=== PATIENT | female | born 1940 | race Caucasian/White ===

== ENCOUNTER 2019-12-15 16:58 | Inpatient (IN) ==
[2019-12-15] MEDS ORDERED: Aspirin 81 MG TAB.CHEW PO ONE (17:15)
[2019-12-15 17:39] LABS: Basophils % 0.7 %; Eosinophils # 0.1 K/mcL (0.0-0.6); Eosinophils % 2.2 %; Hematocrit 42.2 % (35.3-44.9); Hemoglobin 13.9 g/dL (11.5-15.4); Immature Granulocytes % 0.3 % (0-4); Lymphocytes # 1.6 K/mcL (0.6-4.6); Lymphocytes % 27.9 %; Mean Corpuscular HGB Conc 32.9 g/dL (31.6-35.5); Mean Corpuscular Hemoglobin 30.3 pg (28.0-33.3); Mean Corpuscular Volume 92.1 fL (83.0-100.0); Mean Platelet Volume 10.8 fL (9.4-12.4); Monocytes # 0.3 K/mcL (0.0-1.3); Monocytes % 5.9 %; Neutrophils # 3.7 K/mcL (1.6-8.9); Platelet Count 251 K/mcL (140-400); Red Blood Count 4.58 M/mcL (3.82-4.97); Red Cell Distribution Width 13.8 % (11.5-14.5); White Blood Count 5.8 K/mcL (4.3-11.1)
[2019-12-15 17:41] LABS: INR 1.1; Prothrombin Time 12.2 Seconds (9.4-12.1)
[2019-12-15 17:44] LABS: Activated Partial Thrombo Time 34.4 Seconds (26.0-36.0)
[2019-12-15 17:57] LABS: BUN/Creatinine Ratio 23 (6-26); Blood Urea Nitrogen 19 mg/dL (8-23); Calcium 10.5 mg/dL (8.6-10.3); Carbon Dioxide 25 mEq/L (23-29); Chloride 99 mEq/L (98-107); Glucose 379 mg/dL (70-105); Osmolality,Calculated 292 (280-300); Potassium 4.4 mEq/L (3.5-5.1); Sodium 132 mEq/L (136-145); eGFR For African Americans > 60 (> 60); eGFR For Non-African Americans > 60 (> 60)
[2019-12-15 17:59] LABS: Troponin I 0.03 ng/mL (< 0.04)
[2019-12-15] MEDS ORDERED: Naloxone 0.4 MG/ML INJ IVP PRN (20:02)
[2019-12-15] MEDS ORDERED: Dextrose Gel 15 GM/37.5 ML TUBE PO PRN ×2 (20:12)
[2019-12-15] MEDS ORDERED: D5% in Water 1,000 ML IVC PRN (20:12)
[2019-12-15] MEDS ORDERED: *HR* Dextrose 50 % in Water (Syg) 50 ML SYRINGE IVP PRN (20:12)
[2019-12-15] MEDS ORDERED: Furosemide 20 MG/2 ML VIAL IVP ONE (21:59)
[2019-12-15] MEDS ORDERED: tiZANidine 4 MG TABLET PO PRN (22:15)
[2019-12-15] MEDS ORDERED: Nitroglycerin Spray 4.9 GM BOTTLE TL PRN (22:15)
[2019-12-15] MEDS: Insulin LISPRO 300 UNITS/3 ML VIAL SQ SCH (22:49)
[2019-12-15] MEDS ORDERED: Acetaminophen 325 MG TABLET PO PRN (22:54)
[2019-12-15] MEDS ORDERED: *HR* Promethazine 25 MG/ML VIAL IVP PRN (22:54)
[2019-12-16] MEDS ORDERED: Nitroglycerin 0.4 MG TAB.SUBL SL PRN (00:32)
[2019-12-16 01:05] LABS: Basophils % 0.5 %; Eosinophils # 0.1 K/mcL (0.0-0.6); Hematocrit 44.4 % (35.3-44.9); Hemoglobin 14.2 g/dL (11.5-15.4); Immature Granulocytes % 0.3 % (0-4); Lymphocytes # 1.4 K/mcL (0.6-4.6); Lymphocytes % 23.5 %; Mean Corpuscular Volume 93.9 fL (83.0-100.0); Mean Platelet Volume 11.3 fL (9.4-12.4); Monocytes # 0.3 K/mcL (0.0-1.3); Monocytes % 5.6 %; Platelet Count 256 K/mcL (140-400); Red Blood Count 4.73 M/mcL (3.82-4.97); Red Cell Distribution Width 13.9 % (11.5-14.5); Segmented Neutrophils % 68.1 %; White Blood Count 5.9 K/mcL (4.3-11.1)
[2019-12-16 01:08] LABS: INR 1.1; Prothrombin Time 12.3 Seconds (9.4-12.1)
[2019-12-16 01:23] LABS: Chol/HDL Ratio 4.3 (0-4.9)
[2019-12-16 01:24] LABS: BUN/Creatinine Ratio 22 (6-26); Blood Urea Nitrogen 19 mg/dL (8-23); Calcium 10.7 mg/dL (8.6-10.3); Carbon Dioxide 23 mEq/L (23-29); Chloride 99 mEq/L (98-107); Glucose 318 mg/dL (70-105); Osmolality,Calculated 292 (280-300); Sodium 134 mEq/L (136-145); eGFR For African Americans > 60 (> 60); eGFR For Non-African Americans > 60 (> 60)
[2019-12-16 01:38] LABS: Triiodothyronine (T3) Free 3.02 pg/mL (2.50-3.90)
[2019-12-16] MEDS ORDERED: amLODIPine 5 MG TABLET PO ONE (04:25)
[2019-12-16 07:38] LABS: Estimated Average Glucose 260 mg/dl
[2019-12-16] MEDS: Insulin LISPRO 300 UNITS/3 ML VIAL SQ SCH ×4 (08:27→21:44)
[2019-12-16] MEDS: Apixaban 5 MG TABLET PO SCH ×2 (08:28→21:43)
[2019-12-16] MEDS: Gabapentin 300 MG CAPSULE PO SCH ×3 (08:28→21:43)
[2019-12-16] MEDS: Insulin DETEMIR 100 UNIT/ML X5UNITS SQ SCH ×2 (08:28→21:44)
[2019-12-16] MEDS ORDERED: Isosorbide MONOnitrate (24 HR) 60 MG TAB.ER.24H PO SCH (09:00)
[2019-12-16] MEDS ORDERED: Furosemide 20 MG/2 ML VIAL IVP ONE (11:24)
[2019-12-16] MEDS: Furosemide 20 MG/2 ML VIAL IVP SCH (21:44)
[2019-12-17] MEDS: Gabapentin 300 MG CAPSULE PO SCH ×3 (08:04→21:09)
[2019-12-17] MEDS: Furosemide 20 MG/2 ML VIAL IVP SCH ×2 (08:04→21:09)
[2019-12-17] MEDS: Aspirin Enteric Coated 81 MG Tablet PO SCH (08:05)
[2019-12-17] MEDS: Apixaban 5 MG TABLET PO SCH (08:05)
[2019-12-17] MEDS: Insulin LISPRO 300 UNITS/3 ML VIAL SQ SCH ×7 (08:06→21:10)
[2019-12-17 08:13] LABS: BUN/Creatinine Ratio 24 (6-26); Blood Urea Nitrogen 22 mg/dL (8-23); Calcium 10.1 mg/dL (8.6-10.3); Carbon Dioxide 28 mEq/L (23-29); Chloride 101 mEq/L (98-107); Glucose 350 mg/dL (70-105); Osmolality,Calculated 299 (280-300); Potassium 3.8 mEq/L (3.5-5.1); Sodium 136 mEq/L (136-145); eGFR For African Americans > 60 (> 60); eGFR For Non-African Americans 59 (> 60)
[2019-12-17] MEDS ORDERED: hydroCHLOROthiazide 25 MG TABLET PO SCH (09:00)
[2019-12-17] MEDS: lisinopriL 5 MG TABLET PO SCH (11:30)
[2019-12-17] MEDS: Insulin DETEMIR 100 UNIT/ML X5UNITS SQ SCH ×3 (11:30→21:10)
[2019-12-17] MEDS: *HR* OxyCODONE/APAP 10/325 TABLET PO PRN (17:05)
[2019-12-17] MEDS ORDERED: *HR* Heparin 5,000 UNIT/ML VIAL SQ ONE (18:00)
[2019-12-17 20:18] LABS: Bilirubin,Urine Small (Negative); Blood,Urine Negative (Negative); Clarity,Urine Cloudy (Clear); Color,Urine Yellow (Yellow); Glucose,Urine (UA) Normal (Normal); Ketones,Urine Negative (Negative); Leukocyte Esterase,Urine Large (Negative); Nitrite,Urine Negative (Negative); PH,Urine 5.5 pH Units (5.0-8.0); Protein,Urine 30 mg/dL (Neg-Trace); Specific Gravity,Urine 1.021 (1.010-1.025); Urobilinogen,Urine Normal (Normal)
[2019-12-17 20:31] LABS: Bacteria,Urine None Seen per hpf (None-Few); Hyaline Casts,Urine None Seen per lpf (None-Few); Squamous Epithelial Cell,Urine Many per lpf (None-Few); WBC,Urine TNTC per hpf (0-3)
[2019-12-18 06:02] LABS: INR 1.1; Prothrombin Time 12.2 Seconds (9.4-12.1)
[2019-12-18 06:20] LABS: Calcium 10.7 mg/dL (8.6-10.3); Magnesium 2.1 mg/dL (1.6-2.6); Potassium 3.3 mEq/L (3.5-5.1)
[2019-12-18] MEDS: Gabapentin 300 MG CAPSULE PO SCH ×3 (08:52→22:27)
[2019-12-18] MEDS: Aspirin Enteric Coated 81 MG Tablet PO SCH (08:52)
[2019-12-18] MEDS: lisinopriL 5 MG TABLET PO SCH (08:53)
[2019-12-18] MEDS: Insulin LISPRO 300 UNITS/3 ML VIAL SQ SCH ×7 (08:53→20:42)
[2019-12-18] MEDS: Insulin DETEMIR 100 UNIT/ML X5UNITS SQ SCH ×2 (08:58→22:28)
[2019-12-18] MEDS: Furosemide 40 MG TABLET PO SCH (08:58)
[2019-12-18] MEDS: *HR* OxyCODONE/APAP 10/325 TABLET PO PRN (09:04)
[2019-12-18] MEDS ORDERED: CeFAZolin Syr 2,000MG/20 ML 2,000 MG/20 ML SYRINGE IVPB ONE (10:08)
[2019-12-18] MEDS ORDERED: 0.9 % Sodium Chloride 500 ML ONE (10:33)
[2019-12-18] MEDS ORDERED: *HR* FentaNYL (PF) 100 MCG/2 ML VIAL ONE (11:31)
[2019-12-18] MEDS ORDERED: 0.9 % Sodium Chloride 1,000 ML ONE (11:31)
[2019-12-18] MEDS ORDERED: *HR* Midazolam HCl 2 MG/2 ML VIAL ONE (11:31)
[2019-12-18] MEDS: Apixaban 5 MG TABLET PO SCH (22:27)
[2019-12-19] MEDS: *HR* OxyCODONE/APAP 10/325 TABLET PO PRN (05:35)
[2019-12-19 08:01] VITALS: BP 131/75
[2019-12-19] MEDS: Gabapentin 300 MG CAPSULE PO SCH (08:31)
[2019-12-19] MEDS: Furosemide 40 MG TABLET PO SCH (08:31)
[2019-12-19] MEDS: Insulin DETEMIR 100 UNIT/ML X5UNITS SQ SCH (08:31)
[2019-12-19] MEDS: Apixaban 5 MG TABLET PO SCH (08:31)
[2019-12-19] MEDS: lisinopriL 5 MG TABLET PO SCH (08:31)
[2019-12-19] MEDS: Aspirin Enteric Coated 81 MG Tablet PO SCH (08:31)
[2019-12-19] MEDS: Insulin LISPRO 300 UNITS/3 ML VIAL SQ SCH ×3 (08:32→12:44)
[2019-12-19] MEDS ORDERED: Amoxicillin 500 MG CAPSULE PO SCH (09:15)
[2019-12-19 10:02] LABS: Calcium 9.7 mg/dL (8.6-10.3); Magnesium 1.9 mg/dL (1.6-2.6); Potassium 3.9 mEq/L (3.5-5.1)
== END 2019-12-19 13:50 | disposition home health service (06) | DRG 258 ==
LOC: 3BNU 16:58 → EMEROOARM 16:58 → 3BNU 21:05 → SUATTDRO 12-16 11:27
PROVIDERS: ADMIT Internal Medicine; ATTEND Internal Medicine

== ENCOUNTER 2022-01-21 14:27 | Inpatient (IN) ==
[2022-01-21 20:20] LABS: Basophils % 0.5 %; Eosinophils # 0.2 K/mcL (0.0-0.6); Eosinophils % 5.5 %; Hematocrit 29.3 % (35.3-44.9); Hemoglobin 9.2 g/dL (11.5-15.4); Lymphocytes % 27.7 %; Mean Corpuscular HGB Conc 31.4 g/dL (31.6-35.5); Mean Corpuscular Hemoglobin 29.6 pg (28.0-33.3); Mean Corpuscular Volume 94.2 fL (83.0-100.0); Mean Platelet Volume 10.8 fL (9.4-12.4); Monocytes # 0.4 K/mcL (0.0-1.3); Platelet Count 223 K/mcL (140-400); Red Blood Count 3.11 M/mcL (3.82-4.97); Segmented Neutrophils % 55.3 %; White Blood Count 3.7 K/mcL (4.3-11.1)
[2022-01-21 20:29] LABS: Estimated Average Glucose 177 mg/dl; Hemoglobin A1C 7.8 %
[2022-01-21 20:32] LABS: Heparin anti-factor XA UFH 0.13 IU/mL (0.30-0.70)
[2022-01-21 20:41] LABS: Albumin 3.7 g/dL (3.5-5.7); Albumin/Globulin Ratio 1.2 (1.1-2.2); Bilirubin,Total 0.5 mg/dL (0.3-1.0); Chol/HDL Ratio 3.9 (0-4.9); Potassium 4.4 mEq/L (3.5-5.1); Total Protein 6.7 g/dL (6.4-8.9)
[2022-01-21 20:48] LABS: Troponin I 0.08 ng/mL (< 0.04)
[2022-01-21] MEDS ORDERED: *HR* Heparin 5,000 UNIT/ML VIAL IVP PRN (20:49)
[2022-01-21 20:58] LABS: Thyroid Stimulating Hormone 0.961 mcIU/mL (0.340-5.600)
[2022-01-21] MEDS ORDERED: Heparin 25,000UNIT/250ML 1/2NS 25,000 UNIT/250 ML IV.SOLN IVC SCH (21:00)
[2022-01-21 21:02] LABS: Prothrombin Time 10.7 Seconds (9.4-12.1)
[2022-01-21 21:04] LABS: Activated Partial Thrombo Time 33.2 Seconds (26.0-36.0)
[2022-01-21] MEDS ORDERED: *HR* Dextrose 50 % in Water (Syg) 50 ML SYRINGE IVP PRN (21:32)
[2022-01-21] MEDS ORDERED: D5% in Water 1,000 ML IVC PRN (21:32)
[2022-01-21] MEDS ORDERED: Dextrose Gel 15 GM/37.5 ML TUBE PO PRN ×2 (21:32)
[2022-01-21] MEDS: Heparin 25,000UNIT/250ML 1/2NS 25,000 UNIT/250 ML IV.SOLN IVC SCH (21:33)
[2022-01-21] MEDS ORDERED: Nitroglycerin 0.4 MG TAB.SUBL SL PRN (21:34)
[2022-01-21] MEDS ORDERED: Ondansetron 4 MG/2 ML VIAL IVP PRN (21:36)
[2022-01-21] MEDS ORDERED: Naloxone 0.4 MG/ML INJ IVP PRN (21:36)
[2022-01-22] MEDS: Insulin LISPRO 300 UNITS/3 ML VIAL SUBQ SCH ×4 (01:12→16:40)
[2022-01-22] MEDS: Famotidine 20 MG TABLET PO SCH ×2 (01:33→08:19)
[2022-01-22 03:16] LABS: Hematocrit 29.4 % (35.3-44.9); Mean Corpuscular HGB Conc 30.6 g/dL (31.6-35.5); Mean Corpuscular Hemoglobin 29.3 pg (28.0-33.3); Mean Corpuscular Volume 95.8 fL (83.0-100.0); Mean Platelet Volume 10.5 fL (9.4-12.4); Platelet Count 219 K/mcL (140-400); Red Blood Count 3.07 M/mcL (3.82-4.97); Red Cell Distribution Width 14.8 % (11.5-14.5); White Blood Count 3.7 K/mcL (4.3-11.1)
[2022-01-22 03:24] LABS: Calcium 10.2 mg/dL (8.6-10.3); Magnesium 2.2 mg/dL (1.6-2.6); Potassium 4.1 mEq/L (3.5-5.1)
[2022-01-22 03:42] LABS: Folate > 22.3 ng/mL (3.0-16.0); Vitamin B12 636 pg/mL (250-1100)
[2022-01-22] MEDS: Morphine Sulfate 2 MG/ML SYRINGE IVP PRN ×2 (04:23→22:06)
[2022-01-22 06:36] LABS: Heparin anti-factor XA UFH 0.27 IU/mL (0.30-0.70)
[2022-01-22 06:39] LABS: Activated Partial Thrombo Time 45.1 Seconds (26.0-36.0)
[2022-01-22] MEDS: *HR* Heparin 5,000 UNIT/ML VIAL IVP PRN (08:19)
[2022-01-22] MEDS: Aspirin Enteric Coated 81 MG Tablet PO SCH (08:19)
[2022-01-22] MEDS ORDERED: Perflutren Lipid Microsphere 1.3 ML in 0.9 % Sodium Chloride 8.7 ML IVP PRN (12:59)
[2022-01-22] MEDS: diazePAM 5 MG TABLET PO PRN (18:46)
[2022-01-22] MEDS ORDERED: QUEtiapine Fumarate 25 MG TABLET PO ONE (18:55)
[2022-01-22] MEDS: Heparin 25,000UNIT/250ML 1/2NS 25,000 UNIT/250 ML IV.SOLN IVC SCH (22:12)
[2022-01-23] MEDS: Insulin LISPRO 300 UNITS/3 ML VIAL SUBQ SCH ×4 (00:21→17:44)
[2022-01-23 05:35] LABS: Hematocrit 31.5 % (35.3-44.9); Hemoglobin 9.8 g/dL (11.5-15.4); Mean Corpuscular HGB Conc 31.1 g/dL (31.6-35.5); Mean Corpuscular Hemoglobin 29.1 pg (28.0-33.3); Mean Corpuscular Volume 93.5 fL (83.0-100.0); Mean Platelet Volume 10.7 fL (9.4-12.4); Platelet Count 233 K/mcL (140-400); Red Blood Count 3.37 M/mcL (3.82-4.97); White Blood Count 4.9 K/mcL (4.3-11.1)
[2022-01-23 05:54] LABS: Calcium 10.5 mg/dL (8.6-10.3); Potassium 4.1 mEq/L (3.5-5.1)
[2022-01-23] MEDS: Isosorbide MONOnitrate (24 HR) 30 MG TAB.ER.24H PO SCH (08:02)
[2022-01-23] MEDS: Ranolazine 500 MG TAB.ER.12H PO SCH ×2 (08:02→21:29)
[2022-01-23] MEDS: Famotidine 20 MG TABLET PO SCH (08:03)
[2022-01-23] MEDS: Aspirin Enteric Coated 81 MG Tablet PO SCH (08:03)
[2022-01-23] MEDS: lisinopriL 5 MG TABLET PO SCH (08:03)
[2022-01-23] MEDS ORDERED: *HR* LORazepam 2 MG/ML VIAL IM STA (22:41)
[2022-01-24] MEDS: Insulin LISPRO 300 UNITS/3 ML VIAL SUBQ SCH ×4 (01:35→17:45)
[2022-01-24 04:44] LABS: VBG Ionized Calcium 1.22 mmol/L (1.15-1.35)
[2022-01-24 05:00] LABS: BUN/Creatinine Ratio 29 (6-26); Blood Urea Nitrogen 26 mg/dL (8-23); Calcium 10.6 mg/dL (8.6-10.3); Carbon Dioxide 23 mEq/L (23-29); Chloride 111 mEq/L (98-107); Glucose 113 mg/dL (70-105); Osmolality,Calculated 298 (280-300); Potassium 4.1 mEq/L (3.5-5.1); Sodium 141 mEq/L (136-145); eGFR For African Americans > 60 (> 60); eGFR For Non-African Americans 60 (> 60)
[2022-01-24] MEDS: Ranolazine 500 MG TAB.ER.12H PO SCH ×2 (09:49→19:52)
[2022-01-24] MEDS: Isosorbide MONOnitrate (24 HR) 30 MG TAB.ER.24H PO SCH (09:49)
[2022-01-24] MEDS: Famotidine 20 MG TABLET PO SCH (09:49)
[2022-01-24] MEDS: lisinopriL 5 MG TABLET PO SCH (09:50)
[2022-01-24] MEDS: Aspirin Enteric Coated 81 MG Tablet PO SCH (09:51)
[2022-01-24] MEDS: Heparin 25,000UNIT/250ML 1/2NS 25,000 UNIT/250 ML IV.SOLN IVC SCH ×2 (19:06→19:28)
[2022-01-25] MEDS: Insulin LISPRO 300 UNITS/3 ML VIAL SUBQ SCH ×4 (00:28→18:14)
[2022-01-25] MEDS: *HR* Heparin 5,000 UNIT/ML VIAL IVP PRN (03:02)
[2022-01-25 05:44] LABS: Basophils % 0.5 %; Eosinophils # 0.1 K/mcL (0.0-0.6); Eosinophils % 2.9 %; Hematocrit 29.7 % (35.3-44.9); Hemoglobin 9.1 g/dL (11.5-15.4); Lymphocytes # 1.1 K/mcL (0.6-4.6); Lymphocytes % 26.2 %; Mean Corpuscular HGB Conc 30.6 g/dL (31.6-35.5); Mean Corpuscular Hemoglobin 29.3 pg (28.0-33.3); Mean Corpuscular Volume 95.5 fL (83.0-100.0); Mean Platelet Volume 10.8 fL (9.4-12.4); Monocytes # 0.5 K/mcL (0.0-1.3); Monocytes % 10.9 %; Neutrophils # 2.5 K/mcL (1.6-8.9); Platelet Count 196 K/mcL (140-400); Red Blood Count 3.11 M/mcL (3.82-4.97); Segmented Neutrophils % 59.5 %; White Blood Count 4.1 K/mcL (4.3-11.1)
[2022-01-25 06:04] LABS: BUN/Creatinine Ratio 26 (6-26); Blood Urea Nitrogen 24 mg/dL (8-23); Calcium 9.9 mg/dL (8.6-10.3); Carbon Dioxide 21 mEq/L (23-29); Chloride 107 mEq/L (98-107); Glucose 197 mg/dL (70-105); Osmolality,Calculated 296 (280-300); Sodium 138 mEq/L (136-145); eGFR For African Americans > 60 (> 60); eGFR For Non-African Americans 57 (> 60)
[2022-01-25] MEDS: Ranolazine 500 MG TAB.ER.12H PO SCH ×2 (09:21→21:08)
[2022-01-25] MEDS: Isosorbide MONOnitrate (24 HR) 30 MG TAB.ER.24H PO SCH (09:21)
[2022-01-25] MEDS: Famotidine 20 MG TABLET PO SCH (09:21)
[2022-01-25] MEDS: Aspirin Enteric Coated 81 MG Tablet PO SCH (09:21)
[2022-01-25] MEDS: lisinopriL 5 MG TABLET PO SCH (09:22)
[2022-01-25] MEDS: Morphine Sulfate 2 MG/ML SYRINGE IVP PRN (09:28)
[2022-01-25 11:19] LABS: Bilirubin,Urine Negative (Negative); Blood,Urine Negative (Negative); Clarity,Urine Clear (Clear); Color,Urine Dark-Yellow (Yellow); Glucose,Urine (UA) 100 mg/dL (Normal); Hyaline Casts,Urine Few per lpf (None Seen); Ketones,Urine 10 mg/dL (Negative); Leukocyte Esterase,Urine Small (Negative); Mucus,Urine Few per lpf (None-Few); Nitrite,Urine Negative (Negative); Protein,Urine Trace mg/dL (Neg-Trace); RBC,Urine 0-3 per hpf (0-3); Specific Gravity,Urine 1.024 (1.010-1.025); Squamous Epithelial Cell,Urine Few per hpf (None-Few); Urobilinogen,Urine Normal (Normal)
[2022-01-25] MEDS: Spironolactone 12.5 MG TABLET PO SCH (11:19)
[2022-01-25] MEDS: Gabapentin 300 MG CAPSULE PO SCH (21:08)
[2022-01-25] MEDS: diazePAM 5 MG TABLET PO PRN (23:17)
[2022-01-26] MEDS: Insulin LISPRO 300 UNITS/3 ML VIAL SUBQ SCH ×4 (01:46→17:09)
[2022-01-26] MEDS: Heparin 25,000UNIT/250ML 1/2NS 25,000 UNIT/250 ML IV.SOLN IVC SCH (04:34)
[2022-01-26] MEDS: lisinopriL 5 MG TABLET PO SCH (08:25)
[2022-01-26] MEDS: Aspirin Enteric Coated 81 MG Tablet PO SCH (08:25)
[2022-01-26] MEDS: Gabapentin 300 MG CAPSULE PO SCH ×3 (08:25→20:23)
[2022-01-26] MEDS: Ranolazine 500 MG TAB.ER.12H PO SCH ×2 (08:25→20:23)
[2022-01-26] MEDS: Metoprolol XL (24 HR) Succ 50 MG TAB.ER.24H PO SCH (08:25)
[2022-01-26] MEDS: Isosorbide MONOnitrate (24 HR) 30 MG TAB.ER.24H PO SCH (08:25)
[2022-01-26] MEDS: Spironolactone 12.5 MG TABLET PO SCH (08:25)
[2022-01-26] MEDS: Famotidine 20 MG TABLET PO SCH (08:25)
[2022-01-26] MEDS: Acetaminophen 325 MG TABLET PO PRN (10:53)
[2022-01-26 15:15] LABS: Hematocrit 27.2 % (35.3-44.9); Hemoglobin 8.5 g/dL (11.5-15.4); Mean Corpuscular HGB Conc 31.3 g/dL (31.6-35.5); Mean Corpuscular Hemoglobin 29.4 pg (28.0-33.3); Mean Corpuscular Volume 94.1 fL (83.0-100.0); Mean Platelet Volume 11.1 fL (9.4-12.4); Platelet Count 205 K/mcL (140-400); Red Blood Count 2.89 M/mcL (3.82-4.97); Red Cell Distribution Width 14.9 % (11.5-14.5); White Blood Count 4.3 K/mcL (4.3-11.1)
[2022-01-26] MEDS: *HR* Heparin 5,000 UNIT/ML VIAL IVP PRN (15:39)
[2022-01-26 15:41] LABS: Calcium 9.8 mg/dL (8.6-10.3)
[2022-01-27] MEDS: Insulin LISPRO 300 UNITS/3 ML VIAL SUBQ SCH ×4 (02:57→19:58)
[2022-01-27 04:10] LABS: Hematocrit 29.8 % (35.3-44.9); Hemoglobin 9.2 g/dL (11.5-15.4); Mean Corpuscular HGB Conc 30.9 g/dL (31.6-35.5); Mean Corpuscular Hemoglobin 28.7 pg (28.0-33.3); Mean Corpuscular Volume 92.8 fL (83.0-100.0); Mean Platelet Volume 11.2 fL (9.4-12.4); Platelet Count 233 K/mcL (140-400); Red Blood Count 3.21 M/mcL (3.82-4.97); White Blood Count 3.8 K/mcL (4.3-11.1)
[2022-01-27 04:18] LABS: INR 1.1; Prothrombin Time 11.8 Seconds (9.4-12.1)
[2022-01-27 04:21] LABS: Activated Partial Thrombo Time 57.5 Seconds (26.0-36.0)
[2022-01-27 04:28] LABS: BUN/Creatinine Ratio 22 (6-26); Blood Urea Nitrogen 23 mg/dL (8-23); Carbon Dioxide 25 mEq/L (23-29); Chloride 104 mEq/L (98-107); Glucose 276 mg/dL (70-105); Osmolality,Calculated 294 (280-300); Potassium 3.9 mEq/L (3.5-5.1); Sodium 135 mEq/L (136-145); eGFR For African Americans > 60 (> 60); eGFR For Non-African Americans 50 (> 60)
[2022-01-27] MEDS: Spironolactone 12.5 MG TABLET PO SCH (08:52)
[2022-01-27] MEDS: Acetaminophen 325 MG TABLET PO PRN (08:52)
[2022-01-27] MEDS: Isosorbide MONOnitrate (24 HR) 30 MG TAB.ER.24H PO SCH (08:53)
[2022-01-27] MEDS: Ranolazine 500 MG TAB.ER.12H PO SCH ×2 (08:53→21:46)
[2022-01-27] MEDS: Aspirin Enteric Coated 81 MG Tablet PO SCH (08:53)
[2022-01-27] MEDS: Famotidine 20 MG TABLET PO SCH (08:53)
[2022-01-27] MEDS: Gabapentin 300 MG CAPSULE PO SCH ×3 (08:53→21:46)
[2022-01-27] MEDS: Metoprolol XL (24 HR) Succ 50 MG TAB.ER.24H PO SCH (08:54)
[2022-01-27] MEDS: lisinopriL 5 MG TABLET PO SCH (08:54)
[2022-01-27] MEDS: Heparin 25,000UNIT/250ML 1/2NS 25,000 UNIT/250 ML IV.SOLN IVC SCH (08:55)
[2022-01-27] MEDS: *HR* OxyCODONE/APAP 10/325 TABLET PO PRN (10:53)
[2022-01-27] MEDS ORDERED: *HR* Heparin 10,000 UNIT/10 ML VIAL ONE ×2 (13:33→14:29)
[2022-01-27] MEDS ORDERED: Nitroglycerin 1,000 MCG/5 ML VIAL IV ONE (13:34)
[2022-01-27] MEDS ORDERED: Heparin 1,000 UNITS/500 mL 500 ML ONE (13:34)
[2022-01-27] MEDS ORDERED: Iopamidol - 370 200 ML INFUS..BTL ONE (13:34)
[2022-01-27] MEDS ORDERED: 0.9 % Sodium Chloride 2,000 ML ONE (13:34)
[2022-01-27] MEDS ORDERED: *HR* Midazolam HCl 2 MG/2 ML VIAL ONE (13:58)
[2022-01-27] MEDS ORDERED: *HR* FentaNYL (PF) 100 MCG/2 ML VIAL ONE (13:58)
[2022-01-28] MEDS: Insulin LISPRO 300 UNITS/3 ML VIAL SUBQ SCH ×4 (01:59→18:03)
[2022-01-28 04:07] LABS: Hematocrit 29.4 % (35.3-44.9); Mean Corpuscular HGB Conc 30.6 g/dL (31.6-35.5); Mean Corpuscular Hemoglobin 29.6 pg (28.0-33.3); Mean Corpuscular Volume 96.7 fL (83.0-100.0); Mean Platelet Volume 11.1 fL (9.4-12.4); Platelet Count 226 K/mcL (140-400); Red Blood Count 3.04 M/mcL (3.82-4.97); Red Cell Distribution Width 15.4 % (11.5-14.5); White Blood Count 5.3 K/mcL (4.3-11.1)
[2022-01-28 04:36] LABS: BUN/Creatinine Ratio 17 (6-26); Blood Urea Nitrogen 17 mg/dL (8-23); Calcium 9.8 mg/dL (8.6-10.3); Carbon Dioxide 24 mEq/L (23-29); Chloride 107 mEq/L (98-107); Glucose 149 mg/dL (70-105); Osmolality,Calculated 290 (280-300); Potassium 4.1 mEq/L (3.5-5.1); Sodium 138 mEq/L (136-145); Troponin I 0.89 ng/mL (< 0.04); eGFR For African Americans > 60 (> 60); eGFR For Non-African Americans 52 (> 60)
[2022-01-28] MEDS: Isosorbide MONOnitrate (24 HR) 30 MG TAB.ER.24H PO SCH (08:23)
[2022-01-28] MEDS: Ranolazine 500 MG TAB.ER.12H PO SCH ×2 (08:23→20:22)
[2022-01-28] MEDS: lisinopriL 5 MG TABLET PO SCH (08:23)
[2022-01-28] MEDS: Famotidine 20 MG TABLET PO SCH (08:23)
[2022-01-28] MEDS: Gabapentin 300 MG CAPSULE PO SCH (08:23)
[2022-01-28] MEDS: Spironolactone 12.5 MG TABLET PO SCH (08:23)
[2022-01-28] MEDS: Metoprolol XL (24 HR) Succ 50 MG TAB.ER.24H PO SCH (08:23)
[2022-01-28] MEDS: Aspirin Enteric Coated 81 MG Tablet PO SCH (08:23)
[2022-01-28] MEDS: Apixaban 5 MG TABLET PO SCH ×2 (09:45→20:22)
[2022-01-28] MEDS ORDERED: Gabapentin 300 MG CAPSULE PO PRN (10:03)
[2022-01-28] MEDS: *HR* OxyCODONE/APAP 10/325 TABLET PO PRN (20:27)
[2022-01-29] MEDS: Insulin LISPRO 300 UNITS/3 ML VIAL SUBQ SCH ×5 (01:14→19:57)
[2022-01-29 06:24] LABS: Hematocrit 27.7 % (35.3-44.9); Hemoglobin 8.4 g/dL (11.5-15.4); Mean Corpuscular HGB Conc 30.3 g/dL (31.6-35.5); Mean Corpuscular Hemoglobin 29.4 pg (28.0-33.3); Mean Corpuscular Volume 96.9 fL (83.0-100.0); Mean Platelet Volume 11.2 fL (9.4-12.4); Platelet Count 196 K/mcL (140-400); Red Blood Count 2.86 M/mcL (3.82-4.97); Red Cell Distribution Width 15.5 % (11.5-14.5); White Blood Count 3.7 K/mcL (4.3-11.1)
[2022-01-29 06:48] LABS: Calcium 9.5 mg/dL (8.6-10.3); Potassium 4.5 mEq/L (3.5-5.1)
[2022-01-29] MEDS: Spironolactone 12.5 MG TABLET PO SCH (09:16)
[2022-01-29] MEDS: Aspirin Enteric Coated 81 MG Tablet PO SCH (09:16)
[2022-01-29] MEDS: Metoprolol XL (24 HR) Succ 50 MG TAB.ER.24H PO SCH (09:16)
[2022-01-29] MEDS: Isosorbide MONOnitrate (24 HR) 30 MG TAB.ER.24H PO SCH (09:16)
[2022-01-29] MEDS: Apixaban 5 MG TABLET PO SCH ×2 (09:17→19:58)
[2022-01-29] MEDS: Ranolazine 500 MG TAB.ER.12H PO SCH ×2 (09:17→19:57)
[2022-01-29] MEDS: Famotidine 20 MG TABLET PO SCH (09:18)
[2022-01-29] MEDS: lisinopriL 5 MG TABLET PO SCH (09:18)
[2022-01-29] MEDS: *HR* OxyCODONE/APAP 10/325 TABLET PO PRN ×2 (09:24→19:57)
[2022-01-29] MEDS: diazePAM 5 MG TABLET PO PRN (15:42)
[2022-01-30 02:13] LABS: Hematocrit 26.8 % (35.3-44.9); Hemoglobin 8.1 g/dL (11.5-15.4); Mean Corpuscular HGB Conc 30.2 g/dL (31.6-35.5); Mean Corpuscular Hemoglobin 28.8 pg (28.0-33.3); Mean Corpuscular Volume 95.4 fL (83.0-100.0); Platelet Count 209 K/mcL (140-400); Red Blood Count 2.81 M/mcL (3.82-4.97); Red Cell Distribution Width 15.6 % (11.5-14.5)
[2022-01-30 02:40] LABS: Calcium 9.9 mg/dL (8.6-10.3); Potassium 4.9 mEq/L (3.5-5.1)
[2022-01-30] MEDS: Ranolazine 500 MG TAB.ER.12H PO SCH ×2 (08:52→20:31)
[2022-01-30] MEDS: Isosorbide MONOnitrate (24 HR) 30 MG TAB.ER.24H PO SCH (08:52)
[2022-01-30] MEDS: *HR* OxyCODONE/APAP 10/325 TABLET PO PRN ×2 (08:52→20:36)
[2022-01-30] MEDS: Spironolactone 12.5 MG TABLET PO SCH (08:52)
[2022-01-30] MEDS: Apixaban 5 MG TABLET PO SCH ×2 (08:53→20:32)
[2022-01-30] MEDS: lisinopriL 5 MG TABLET PO SCH (08:54)
[2022-01-30] MEDS: Aspirin Enteric Coated 81 MG Tablet PO SCH (08:54)
[2022-01-30] MEDS: Metoprolol XL (24 HR) Succ 50 MG TAB.ER.24H PO SCH (08:54)
[2022-01-30] MEDS: Famotidine 20 MG TABLET PO SCH (08:55)
[2022-01-30] MEDS: Sennosides/Docusate Sodium TABLET PO PRN (08:55)
[2022-01-30] MEDS: Insulin LISPRO 300 UNITS/3 ML VIAL SUBQ SCH ×4 (08:56→20:43)
[2022-01-31] MEDS: Insulin LISPRO 300 UNITS/3 ML VIAL SUBQ SCH ×4 (09:05→21:12)
[2022-01-31] MEDS: Spironolactone 12.5 MG TABLET PO SCH (09:05)
[2022-01-31] MEDS: Aspirin Enteric Coated 81 MG Tablet PO SCH (09:05)
[2022-01-31] MEDS: Isosorbide MONOnitrate (24 HR) 30 MG TAB.ER.24H PO SCH (09:06)
[2022-01-31] MEDS: lisinopriL 5 MG TABLET PO SCH (09:06)
[2022-01-31] MEDS: *HR* OxyCODONE/APAP 10/325 TABLET PO PRN ×2 (09:06→17:32)
[2022-01-31] MEDS: Metoprolol XL (24 HR) Succ 50 MG TAB.ER.24H PO SCH (09:06)
[2022-01-31] MEDS: Apixaban 5 MG TABLET PO SCH ×2 (09:06→21:20)
[2022-01-31] MEDS: Famotidine 20 MG TABLET PO SCH (09:06)
[2022-01-31] MEDS: Ranolazine 500 MG TAB.ER.12H PO SCH ×2 (09:06→21:21)
[2022-01-31] MEDS: Sennosides/Docusate Sodium TABLET PO PRN (21:21)
[2022-02-01] MEDS: Aspirin Enteric Coated 81 MG Tablet PO SCH (08:04)
[2022-02-01] MEDS: lisinopriL 5 MG TABLET PO SCH (08:04)
[2022-02-01] MEDS: Famotidine 20 MG TABLET PO SCH (08:04)
[2022-02-01] MEDS: Spironolactone 12.5 MG TABLET PO SCH (08:04)
[2022-02-01] MEDS: Metoprolol XL (24 HR) Succ 50 MG TAB.ER.24H PO SCH (08:05)
[2022-02-01] MEDS: Isosorbide MONOnitrate (24 HR) 30 MG TAB.ER.24H PO SCH (08:05)
[2022-02-01] MEDS: Ranolazine 500 MG TAB.ER.12H PO SCH ×2 (08:05→20:54)
[2022-02-01] MEDS: Apixaban 5 MG TABLET PO SCH ×2 (08:05→20:55)
[2022-02-01] MEDS: Insulin LISPRO 300 UNITS/3 ML VIAL SUBQ SCH ×4 (08:05→20:55)
[2022-02-01 13:50] LABS: Adenovirus Not Detected (Not Detect); Bordetella Pertussis Not Detected (Not Detect); Chlamydophila pneumoniae Not Detected (Not Detect); Coronavirus 229E Not Detected (Not Detect); Coronavirus HKU1 Not Detected (Not Detect); Coronavirus NL63 Not Detected (Not Detect); Coronavirus OC43 Not Detected (Not Detect); Human Metapneumovirus Not Detected (Not Detect); Human Rhinovirus/Enterovirus Not Detected (Not Detect); Influenza A Subtype 2009 H1 Not Detected (Not Detect); Influenza B Not Detected (Not Detect); Mycoplasma pneumoniae Not Detected (Not Detect); Parainfluenza Virus 1 Not Detected (Not Detect); Parainfluenza Virus 2 Not Detected (Not Detect); Parainfluenza Virus 3 Not Detected (Not Detect); Parainfluenza Virus 4 Not Detected (Not Detect); Respiratory Syncytial Virus Not Detected (Not Detect); SARS-CoV-2 Not Detected (Not Detect)
[2022-02-01] MEDS: *HR* OxyCODONE/APAP 10/325 TABLET PO PRN (16:50)
[2022-02-02] MEDS: Isosorbide MONOnitrate (24 HR) 30 MG TAB.ER.24H PO SCH (08:17)
[2022-02-02] MEDS: Aspirin Enteric Coated 81 MG Tablet PO SCH (08:17)
[2022-02-02] MEDS: Famotidine 20 MG TABLET PO SCH (08:17)
[2022-02-02] MEDS: Metoprolol XL (24 HR) Succ 50 MG TAB.ER.24H PO SCH (08:17)
[2022-02-02] MEDS: lisinopriL 5 MG TABLET PO SCH (08:17)
[2022-02-02] MEDS: Apixaban 5 MG TABLET PO SCH ×2 (08:17→21:06)
[2022-02-02] MEDS: Ranolazine 500 MG TAB.ER.12H PO SCH ×2 (08:17→21:06)
[2022-02-02] MEDS: Spironolactone 12.5 MG TABLET PO SCH (08:17)
[2022-02-02] MEDS: Insulin LISPRO 300 UNITS/3 ML VIAL SUBQ SCH ×4 (08:18→20:49)
[2022-02-02] MEDS: Sennosides/Docusate Sodium TABLET PO PRN (18:18)
[2022-02-02] MEDS: Levalbuterol Neb 1.25 MG/3 ML IH SCH (22:49)
[2022-02-03] MEDS: Levalbuterol Neb 1.25 MG/3 ML IH SCH ×3 (03:49→15:07)
[2022-02-03] MEDS: Morphine Sulfate 2 MG/ML SYRINGE IVP PRN (04:32)
[2022-02-03] MEDS: Isosorbide MONOnitrate (24 HR) 30 MG TAB.ER.24H PO SCH (08:57)
[2022-02-03] MEDS: lisinopriL 5 MG TABLET PO SCH (08:57)
[2022-02-03] MEDS: Metoprolol XL (24 HR) Succ 50 MG TAB.ER.24H PO SCH (08:57)
[2022-02-03] MEDS: Spironolactone 12.5 MG TABLET PO SCH (08:57)
[2022-02-03] MEDS: Famotidine 20 MG TABLET PO SCH (08:58)
[2022-02-03] MEDS: Aspirin Enteric Coated 81 MG Tablet PO SCH (08:58)
[2022-02-03] MEDS: Insulin LISPRO 300 UNITS/3 ML VIAL SUBQ SCH ×4 (08:58→20:20)
[2022-02-03] MEDS: Ranolazine 500 MG TAB.ER.12H PO SCH ×2 (08:58→20:06)
[2022-02-03] MEDS: Apixaban 5 MG TABLET PO SCH ×2 (08:58→20:06)
[2022-02-03] MEDS: *HR* OxyCODONE/APAP 10/325 TABLET PO PRN ×2 (11:21→20:05)
[2022-02-03] MEDS ORDERED: Levalbuterol Neb 1.25 MG/3 ML IH PRN (16:51)
[2022-02-03] MEDS: diazePAM 5 MG TABLET PO PRN (20:06)
[2022-02-04] MEDS: *HR* OxyCODONE/APAP 10/325 TABLET PO PRN (09:51)
[2022-02-04] MEDS: Aspirin Enteric Coated 81 MG Tablet PO SCH (10:00)
[2022-02-04] MEDS: Ranolazine 500 MG TAB.ER.12H PO SCH ×2 (10:00→21:13)
[2022-02-04] MEDS: Metoprolol XL (24 HR) Succ 50 MG TAB.ER.24H PO SCH (10:00)
[2022-02-04] MEDS: Isosorbide MONOnitrate (24 HR) 30 MG TAB.ER.24H PO SCH (10:00)
[2022-02-04] MEDS: Spironolactone 12.5 MG TABLET PO SCH (10:00)
[2022-02-04] MEDS: Famotidine 20 MG TABLET PO SCH (10:01)
[2022-02-04] MEDS: lisinopriL 5 MG TABLET PO SCH (10:01)
[2022-02-04] MEDS: Apixaban 5 MG TABLET PO SCH ×2 (10:02→21:13)
[2022-02-04] MEDS: Insulin LISPRO 300 UNITS/3 ML VIAL SUBQ SCH ×4 (10:03→21:13)
[2022-02-04] MEDS: Furosemide 40 MG TABLET PO SCH (11:58)
[2022-02-04] MEDS: Morphine Sulfate 2 MG/ML SYRINGE IVP PRN (14:45)
[2022-02-04] MEDS: Sennosides/Docusate Sodium TABLET PO PRN (14:45)
[2022-02-04] MEDS ORDERED: Bisacodyl 10 MG RECTAL SUPPOSITORY RC PRN (16:29)
[2022-02-05] MEDS ORDERED: Furosemide 40 MG TABLET PO SCH (09:00)
[2022-02-05] MEDS: Ranolazine 500 MG TAB.ER.12H PO SCH ×2 (09:44→20:43)
[2022-02-05] MEDS: Aspirin Enteric Coated 81 MG Tablet PO SCH (09:44)
[2022-02-05] MEDS: Isosorbide MONOnitrate (24 HR) 30 MG TAB.ER.24H PO SCH (09:45)
[2022-02-05] MEDS: Furosemide 40 MG TABLET PO SCH (09:45)
[2022-02-05] MEDS: Apixaban 5 MG TABLET PO SCH ×2 (09:45→20:44)
[2022-02-05] MEDS: lisinopriL 5 MG TABLET PO SCH (09:45)
[2022-02-05] MEDS: Famotidine 20 MG TABLET PO SCH (09:45)
[2022-02-05] MEDS: Insulin LISPRO 300 UNITS/3 ML VIAL SUBQ SCH ×4 (09:45→21:51)
[2022-02-05] MEDS: Metoprolol XL (24 HR) Succ 50 MG TAB.ER.24H PO SCH (09:45)
[2022-02-05] MEDS: Spironolactone 12.5 MG TABLET PO SCH (09:45)
[2022-02-05] MEDS: *HR* OxyCODONE/APAP 10/325 TABLET PO PRN (20:43)
[2022-02-05] MEDS: diazePAM 5 MG TABLET PO PRN (20:43)
[2022-02-06 07:27] VITALS: PULSE 68
[2022-02-06] MEDS: Ranolazine 500 MG TAB.ER.12H PO SCH (09:07)
[2022-02-06] MEDS: Spironolactone 12.5 MG TABLET PO SCH (09:07)
[2022-02-06] MEDS: Furosemide 40 MG TABLET PO SCH (09:07)
[2022-02-06] MEDS: Isosorbide MONOnitrate (24 HR) 30 MG TAB.ER.24H PO SCH (09:07)
[2022-02-06] MEDS: Aspirin Enteric Coated 81 MG Tablet PO SCH (09:08)
[2022-02-06] MEDS: lisinopriL 5 MG TABLET PO SCH (09:08)
[2022-02-06] MEDS: Famotidine 20 MG TABLET PO SCH (09:08)
[2022-02-06] MEDS: Apixaban 5 MG TABLET PO SCH (09:08)
[2022-02-06] MEDS: Metoprolol XL (24 HR) Succ 50 MG TAB.ER.24H PO SCH (09:08)
[2022-02-06] MEDS: Insulin LISPRO 300 UNITS/3 ML VIAL SUBQ SCH ×2 (09:08→11:27)
[2022-02-06 11:07] VITALS: BP 135/65; TEMP 98.9; O2SAT 99
== END 2022-02-06 12:44 | disposition home health service (06) | DRG 247 ==
LOC: 2ANU → SUATTDRO 18:34
PROVIDERS: ADMIT General Practice; ATTEND Student in an Organized Health Care Education/Training Program

== ENCOUNTER 2022-05-04 12:28 | Inpatient (IN) ==
[2022-05-04 19:09] LABS: Hematocrit 24.8 % (35.3-44.9); Hemoglobin 7.9 g/dL (11.5-15.4)
[2022-05-04] MEDS ORDERED: Ondansetron 4 MG/2 ML VIAL IVP PRN (19:33)
[2022-05-04] MEDS ORDERED: Melatonin 3 MG TABLET PO PRN (19:33)
[2022-05-04] MEDS ORDERED: Naloxone 0.4 MG/ML INJ IVP PRN (19:33)
[2022-05-04] MEDS ORDERED: 0.9 % Sodium Chloride 250 ML IVC SCH (19:45)
[2022-05-04] MEDS ORDERED: *HR* Dextrose 50 % in Water (Syg) 50 ML SYRINGE IVP PRN (21:36)
[2022-05-04] MEDS ORDERED: Dextrose Gel 15 GM/37.5 ML TUBE PO PRN ×2 (21:36)
[2022-05-04] MEDS ORDERED: D5% in Water 1,000 ML IVC PRN (21:36)
[2022-05-04] MEDS: Insulin DETEMIR 100 UNIT/ML X5UNITS SUBQ SCH (22:20)
[2022-05-05] MEDS: Insulin LISPRO 300 UNITS/3 ML VIAL SUBQ SCH ×5 (00:08→21:44)
[2022-05-05 04:59] LABS: Basophils % 0.2 %; Hematocrit 28.5 % (35.3-44.9); Hemoglobin 9.4 g/dL (11.5-15.4); Immature Granulocytes % 0.7 % (0-4); Lymphocytes # 1.2 K/mcL (0.6-4.6); Mean Corpuscular Hemoglobin 29.7 pg (28.0-33.3); Mean Corpuscular Volume 90.2 fL (83.0-100.0); Mean Platelet Volume 11.5 fL (9.4-12.4); Monocytes # 0.9 K/mcL (0.0-1.3); Monocytes % 9.5 %; Platelet Count 220 K/mcL (140-400); Red Blood Count 3.16 M/mcL (3.82-4.97); Red Cell Distribution Width 15.3 % (11.5-14.5); Segmented Neutrophils % 76.6 %; White Blood Count 9.2 K/mcL (4.3-11.1)
[2022-05-05 05:08] LABS: INR 1.3; Prothrombin Time 14.1 Seconds (9.4-12.1)
[2022-05-05 05:18] LABS: Albumin 3.8 g/dL (3.5-5.7); Albumin/Globulin Ratio 1.6 (1.1-2.2); Bilirubin,Total 0.6 mg/dL (0.3-1.0); Calcium 10.1 mg/dL (8.6-10.3); Chol/HDL Ratio 3.2 (0-4.9); Globulin 2.4 g/dL (2.4-3.5); Magnesium 1.8 mg/dL (1.6-2.6); Phosphorous 2.5 mg/dL (2.7-4.5); Potassium 3.3 mEq/L (3.5-5.1); Total Protein 6.2 g/dL (6.4-8.9)
[2022-05-05 05:48] LABS: Campylobacter by PCR Not detected (Not detect)
[2022-05-05 05:50] LABS: Adenovirus F 40/41 PCR Not detected (Not detect); Astrovirus PCR Not detected (Not detect); C.difficile Toxin A/B Gene PCR DETECTED (Not detect); Cryptosporidium by PCR Not detected (Not detect); Cyclospora cayetanensis PCR Not detected (Not detect); Entamoeba histolytica PCR Not detected (Not detect); Enteroaggregative E.coli(EAEC) Not detected (Not detect); Enteropathogenic E.coli(EPEC) Not detected (Not detect); Enterotoxigenic E.coli (ETEC) Not detected (Not detect); Giardia lamblia PCR Not detected (Not detect); Norovirus GI/GII PCR Not detected (Not detect); Plesiomonas shigelloides PCR Not detected (Not detect); Rotavirus A PCR Not detected (Not detect); Salmonella PCR Not detected (Not detect); Sapovirus PCR Not detected (Not detect); Shig/EnteroinvasiveE coli EIEC Not detected (Not detect); Shigalike tox-prod E coli STEC Not detected (Not detect); Vibrio PCR Not detected (Not detect); Vibrio cholerae PCR Not detected (Not detect); Yersinia enterocolitica PCR Not detected (Not detect)
[2022-05-05] MEDS: Pantoprazole 40 MG VIAL IVP SCH ×2 (06:54→18:03)
[2022-05-05] MEDS: Vancomycin Oral Soln 125 MG/2.5 ML UDC PO SCH ×4 (09:07→21:43)
[2022-05-05] MEDS ORDERED: Artificial Tears SOLN 15 ML BOTTLE BOTH EYES PRN (15:00)
[2022-05-05] MEDS ORDERED: SODIUM CHLORIDE/NAHCO3/KCL/PEG 4,000 ML SOLN.RECON PO ONE (17:00)
[2022-05-05] MEDS: Ranolazine 500 MG TAB.ER.12H PO SCH ×2 (17:44→17:45)
[2022-05-05] MEDS: Gabapentin 300 MG CAPSULE PO SCH ×2 (21:44→21:54)
[2022-05-05] MEDS: Insulin DETEMIR 100 UNIT/ML X5UNITS SUBQ SCH (21:46)
[2022-05-06] MEDS: Acetaminophen 325 MG TABLET PO PRN ×2 (04:15→11:41)
[2022-05-06] MEDS: Insulin LISPRO 300 UNITS/3 ML VIAL SUBQ SCH ×3 (05:17→20:07)
[2022-05-06] MEDS: Pantoprazole 40 MG VIAL IVP SCH ×2 (05:19→18:03)
[2022-05-06] MEDS: Ranolazine 500 MG TAB.ER.12H PO SCH ×2 (05:19→18:03)
[2022-05-06] MEDS: Gabapentin 300 MG CAPSULE PO SCH ×2 (09:48→21:21)
[2022-05-06] MEDS: Aspirin Enteric Coated 81 MG Tablet PO SCH (09:48)
[2022-05-06 09:49] LABS: Hematocrit 22.9 % (35.3-44.9); Hemoglobin 7.2 g/dL (11.5-15.4); Mean Corpuscular HGB Conc 31.4 g/dL (31.6-35.5); Mean Corpuscular Volume 92.3 fL (83.0-100.0); Mean Platelet Volume 10.9 fL (9.4-12.4); Platelet Count 187 K/mcL (140-400); Red Blood Count 2.48 M/mcL (3.82-4.97); Red Cell Distribution Width 15.9 % (11.5-14.5); White Blood Count 8.5 K/mcL (4.3-11.1)
[2022-05-06] MEDS: Spironolactone 12.5 MG TABLET PO SCH (09:49)
[2022-05-06] MEDS: Vancomycin Oral Soln 125 MG/2.5 ML UDC PO SCH ×4 (09:49→21:21)
[2022-05-06 12:33] LABS: Hemoglobin 7.3 g/dL (11.5-15.4)
[2022-05-06 13:22] LABS: Calcium 9.4 mg/dL (8.6-10.3); Magnesium 1.8 mg/dL (1.6-2.6); Potassium 5.2 mEq/L (3.5-5.1)
[2022-05-06] MEDS ORDERED: 0.9 % Sodium Chloride 250 ML IVC SCH (14:30)
[2022-05-06] MEDS: polyethylene glycoL 3350 17 GM POWD.PACK PO SCH (16:04)
[2022-05-06] MEDS: *HR* OxyCODONE/APAP 10/325 TABLET PO PRN ×2 (16:40→18:13)
[2022-05-06] MEDS: diazePAM 5 MG TABLET PO PRN (21:21)
[2022-05-06] MEDS: Insulin DETEMIR 100 UNIT/ML X5UNITS SUBQ SCH (21:24)
[2022-05-07] MEDS: Insulin LISPRO 300 UNITS/3 ML VIAL SUBQ SCH ×4 (01:26→18:10)
[2022-05-07] MEDS: Pantoprazole 40 MG VIAL IVP SCH ×2 (05:03→16:35)
[2022-05-07] MEDS: Ranolazine 500 MG TAB.ER.12H PO SCH ×2 (05:04→16:35)
[2022-05-07] MEDS: Gabapentin 300 MG CAPSULE PO SCH ×2 (08:13→21:26)
[2022-05-07] MEDS: Aspirin Enteric Coated 81 MG Tablet PO SCH (08:13)
[2022-05-07] MEDS: Spironolactone 12.5 MG TABLET PO SCH (08:14)
[2022-05-07] MEDS: polyethylene glycoL 3350 17 GM POWD.PACK PO SCH (08:14)
[2022-05-07] MEDS: Vancomycin Oral Soln 125 MG/2.5 ML UDC PO SCH ×4 (08:14→21:25)
[2022-05-07 10:33] LABS: Hematocrit 28.2 % (35.3-44.9); Mean Corpuscular HGB Conc 32.3 g/dL (31.6-35.5); Mean Corpuscular Hemoglobin 29.3 pg (28.0-33.3); Mean Corpuscular Volume 90.7 fL (83.0-100.0); Mean Platelet Volume 10.8 fL (9.4-12.4); Platelet Count 221 K/mcL (140-400); Red Blood Count 3.11 M/mcL (3.82-4.97); Red Cell Distribution Width 15.6 % (11.5-14.5); White Blood Count 6.9 K/mcL (4.3-11.1)
[2022-05-07 10:34] LABS: Hemoglobin 9.1 g/dL (11.5-15.4)
[2022-05-07] MEDS ORDERED: Bisacodyl 10 MG RECTAL SUPPOSITORY RC ONE (18:07)
[2022-05-07] MEDS: *HR* OxyCODONE/APAP 10/325 TABLET PO PRN (21:25)
[2022-05-07] MEDS: Insulin DETEMIR 100 UNIT/ML X5UNITS SUBQ SCH (21:39)
[2022-05-08] MEDS: Insulin LISPRO 300 UNITS/3 ML VIAL SUBQ SCH ×4 (00:15→17:34)
[2022-05-08] MEDS: Pantoprazole 40 MG VIAL IVP SCH ×2 (05:41→17:32)
[2022-05-08] MEDS: Ranolazine 500 MG TAB.ER.12H PO SCH ×2 (05:41→17:33)
[2022-05-08 06:33] LABS: Hematocrit 26.9 % (35.3-44.9); Hemoglobin 8.8 g/dL (11.5-15.4); Mean Corpuscular HGB Conc 32.7 g/dL (31.6-35.5); Mean Corpuscular Hemoglobin 30.1 pg (28.0-33.3); Mean Corpuscular Volume 92.1 fL (83.0-100.0); Mean Platelet Volume 10.7 fL (9.4-12.4); Platelet Count 194 K/mcL (140-400); Red Blood Count 2.92 M/mcL (3.82-4.97); Red Cell Distribution Width 15.5 % (11.5-14.5); White Blood Count 4.7 K/mcL (4.3-11.1)
[2022-05-08 06:53] LABS: Calcium 9.2 mg/dL (8.6-10.3); Potassium 4.3 mEq/L (3.5-5.1)
[2022-05-08] MEDS: Gabapentin 300 MG CAPSULE PO SCH ×2 (10:27→22:33)
[2022-05-08] MEDS: Spironolactone 12.5 MG TABLET PO SCH (10:27)
[2022-05-08] MEDS: Aspirin Enteric Coated 81 MG Tablet PO SCH (10:27)
[2022-05-08] MEDS: Vancomycin Oral Soln 125 MG/2.5 ML UDC PO SCH ×4 (10:27→22:32)
[2022-05-08] MEDS: polyethylene glycoL 3350 17 GM POWD.PACK PO SCH (10:27)
[2022-05-08] MEDS: *HR* OxyCODONE/APAP 10/325 TABLET PO PRN (20:40)
[2022-05-08] MEDS: Insulin DETEMIR 100 UNIT/ML X5UNITS SUBQ SCH (22:32)
[2022-05-09] MEDS: Insulin LISPRO 300 UNITS/3 ML VIAL SUBQ SCH ×4 (00:40→16:59)
[2022-05-09 02:43] LABS: Hematocrit 25.1 % (35.3-44.9); Hemoglobin 8.3 g/dL (11.5-15.4); Mean Corpuscular HGB Conc 33.1 g/dL (31.6-35.5); Mean Corpuscular Hemoglobin 30.1 pg (28.0-33.3); Mean Corpuscular Volume 90.9 fL (83.0-100.0); Mean Platelet Volume 10.6 fL (9.4-12.4); Platelet Count 196 K/mcL (140-400); Red Blood Count 2.76 M/mcL (3.82-4.97); Red Cell Distribution Width 15.6 % (11.5-14.5); White Blood Count 5.2 K/mcL (4.3-11.1)
[2022-05-09 03:05] LABS: Calcium 8.9 mg/dL (8.6-10.3); Potassium 4.7 mEq/L (3.5-5.1)
[2022-05-09] MEDS: Ranolazine 500 MG TAB.ER.12H PO SCH ×2 (06:44→16:59)
[2022-05-09] MEDS: Pantoprazole 40 MG VIAL IVP SCH ×2 (06:44→16:59)
[2022-05-09] MEDS: Gabapentin 300 MG CAPSULE PO SCH ×2 (07:59→20:13)
[2022-05-09] MEDS: Spironolactone 12.5 MG TABLET PO SCH (07:59)
[2022-05-09] MEDS: Aspirin Enteric Coated 81 MG Tablet PO SCH (07:59)
[2022-05-09] MEDS: polyethylene glycoL 3350 17 GM POWD.PACK PO SCH (08:00)
[2022-05-09] MEDS: Vancomycin Oral Soln 125 MG/2.5 ML UDC PO SCH ×4 (08:00→20:13)
[2022-05-09] MEDS: *HR* OxyCODONE/APAP 10/325 TABLET PO PRN (15:39)
[2022-05-09] MEDS: diazePAM 5 MG TABLET PO PRN (20:13)
[2022-05-10] MEDS: Insulin DETEMIR 100 UNIT/ML X5UNITS SUBQ SCH (00:02)
[2022-05-10] MEDS: Insulin LISPRO 300 UNITS/3 ML VIAL SUBQ SCH ×5 (00:04→22:18)
[2022-05-10] MEDS: Ranolazine 500 MG TAB.ER.12H PO SCH ×2 (06:07→17:05)
[2022-05-10] MEDS: polyethylene glycoL 3350 17 GM POWD.PACK PO SCH (09:35)
[2022-05-10] MEDS: Spironolactone 12.5 MG TABLET PO SCH (09:35)
[2022-05-10] MEDS: Gabapentin 300 MG CAPSULE PO SCH ×2 (09:35→20:25)
[2022-05-10] MEDS: Aspirin Enteric Coated 81 MG Tablet PO SCH (09:35)
[2022-05-10] MEDS: Vancomycin Oral Soln 125 MG/2.5 ML UDC PO SCH ×4 (09:46→20:25)
[2022-05-10] MEDS: Acetaminophen 325 MG TABLET PO PRN (20:25)
[2022-05-10] MEDS: diazePAM 5 MG TABLET PO PRN (20:25)
[2022-05-11] MEDS: Insulin DETEMIR 100 UNIT/ML X5UNITS SUBQ SCH ×2 (00:04→21:34)
[2022-05-11] MEDS: Spironolactone 12.5 MG TABLET PO SCH (08:43)
[2022-05-11] MEDS: Aspirin Enteric Coated 81 MG Tablet PO SCH (08:44)
[2022-05-11] MEDS: polyethylene glycoL 3350 17 GM POWD.PACK PO SCH (08:44)
[2022-05-11] MEDS: Gabapentin 300 MG CAPSULE PO SCH ×2 (08:44→21:32)
[2022-05-11] MEDS: Insulin LISPRO 300 UNITS/3 ML VIAL SUBQ SCH ×4 (08:58→21:37)
[2022-05-11] MEDS: Vancomycin Oral Soln 125 MG/2.5 ML UDC PO SCH ×4 (13:44→21:33)
[2022-05-11] MEDS: Acetaminophen 325 MG TABLET PO PRN (15:51)
[2022-05-11 16:42] LABS: Influenza A PCR Negative (Negative); Influenza B PCR Negative (Negative); Resp. Syncytial Virus PCR Negative (Negative)
[2022-05-11 16:45] LABS: SARS-CoV-2 by PCR (In House) Negative (Negative)
[2022-05-11] MEDS: Ranolazine 500 MG TAB.ER.12H PO SCH (17:28)
[2022-05-11] MEDS: *HR* OxyCODONE/APAP 10/325 TABLET PO PRN (21:31)
[2022-05-12] MEDS: Ranolazine 500 MG TAB.ER.12H PO SCH ×2 (05:31→17:59)
[2022-05-12] MEDS: Gabapentin 300 MG CAPSULE PO SCH ×2 (09:15→20:49)
[2022-05-12] MEDS: Vancomycin Oral Soln 125 MG/2.5 ML UDC PO SCH ×4 (09:15→20:48)
[2022-05-12] MEDS: Aspirin Enteric Coated 81 MG Tablet PO SCH (09:15)
[2022-05-12] MEDS: Spironolactone 12.5 MG TABLET PO SCH (09:15)
[2022-05-12] MEDS: Insulin LISPRO 300 UNITS/3 ML VIAL SUBQ SCH ×4 (09:16→20:50)
[2022-05-12] MEDS: polyethylene glycoL 3350 17 GM POWD.PACK PO SCH (09:16)
[2022-05-12] MEDS: *HR* OxyCODONE/APAP 10/325 TABLET PO PRN (13:06)
[2022-05-12] MEDS: Insulin DETEMIR 100 UNIT/ML X5UNITS SUBQ SCH (20:48)
[2022-05-12] MEDS: Acetaminophen 325 MG TABLET PO PRN (20:48)
[2022-05-13] MEDS: Ranolazine 500 MG TAB.ER.12H PO SCH (06:03)
[2022-05-13] MEDS: *HR* OxyCODONE/APAP 10/325 TABLET PO PRN (06:14)
[2022-05-13 07:36] VITALS: TEMP 97.3
[2022-05-13] MEDS: Vancomycin Oral Soln 125 MG/2.5 ML UDC PO SCH (08:49)
[2022-05-13] MEDS: polyethylene glycoL 3350 17 GM POWD.PACK PO SCH (08:49)
[2022-05-13] MEDS: Spironolactone 12.5 MG TABLET PO SCH (08:51)
[2022-05-13] MEDS: Aspirin Enteric Coated 81 MG Tablet PO SCH (08:51)
[2022-05-13] MEDS: Gabapentin 300 MG CAPSULE PO SCH (08:52)
[2022-05-13] MEDS: Insulin LISPRO 300 UNITS/3 ML VIAL SUBQ SCH (08:54)
[2022-05-13 15:22] VITALS: BP 122/82; PULSE 64; O2SAT 95
== END 2022-05-13 03:30 | DRG 378 ==
LOC: 3NENU → SUATTDRO 18:22
PROVIDERS: ADMIT Internal Medicine; ATTEND Family Medicine